=== PATIENT | female | born 1990 | race Caucasian/White ===

== ENCOUNTER 2023-01-20 11:02 | Day surgery (SDC) | payer OTHER ==
[~2023-01-20 11:02] MED LIST: Lactated Ringers 1,000 ML IV SCH
[2023-01-20] MEDS ORDERED: Naloxone 0.4 MG/ML SDV IVPUSH PRN (11:18)
[2023-01-20] MEDS ORDERED: Albuterol 0.083% 2.5 MG/3 ML Neb Soln NEB PRN (11:18)
[2023-01-20] MEDS ORDERED: Metoclopramide 10 MG/2 ML SDV IVPUSH PRN (11:18)
[2023-01-20] MEDS ORDERED: HYDROmorphone 1 MG/ML Syringe IVPUSH PRN (11:18)
[2023-01-20] MEDS ORDERED: droPERidol 5 MG/2 ML SDV IVPUSH PRN (11:18)
[2023-01-20] MEDS ORDERED: fentaNYL 50 MCG/ML SDV IVPUSH PRN (11:18)
[2023-01-20] MEDS ORDERED: Morphine 2 MG/ML SYRINGE IVPUSH PRN (11:18)
[2023-01-20] MEDS ORDERED: Ondansetron 4 MG/2 ML SDV IVPUSH PRN (11:18)
[2023-01-20] MEDS ORDERED: Propofol 200 MG/20 ML SDV ONE (13:28)
[2023-01-20] MEDS ORDERED: Dexmedetomidine 200 MCG/2 ML SDV ONE (13:28)
[2023-01-20] MEDS ORDERED: fentaNYL 100 MCG/2 ML SDV ONE (13:28)
[2023-01-20] MEDS ORDERED: Dexamethasone 4 MG/ML 5 ML MDV ONE (13:29)
[2023-01-20] MEDS ORDERED: Ondansetron 4 MG/2 ML SDV ONE (13:29)
[2023-01-20] MEDS ORDERED: Lidocaine 1% 5 ML VIAL ONE (13:29)
[2023-01-20] MEDS ORDERED: Ketorolac 30 MG/ML SDV ONE (13:29)
[2023-01-20] MEDS ORDERED: ePHEDrine 50 MG/ML SDV ONE (13:59)
== END 2023-01-20 15:25 | disposition home or self-care (01) ==
LOC: MW.SDS 11:02
PROVIDERS: ATTEND Obstetrics & Gynecology
DX: N84.0 Polyp of corpus uteri (principal); Z32.00 Encounter for pregnancy test, result unknown; Z79.899 Other long term (current) drug therapy; Z87.59 Personal history of other complications of pregnancy, childbirth and the puerperium
CPT/HCPCS: 36415; 58558; 85027; J1100; J1885; J2405; J2704; J3010; J7120; 00952; J3490

== ENCOUNTER 2023-04-25 10:22 | Day surgery (SDC) | payer OTHER ==
[~2023-04-25 10:22] MED LIST changes: +Sodium Chloride 0.9% 10 ML Syringe FLUSH PRN; +Sodium Chloride 0.9% 2.5 ML Syringe FLUSH PRN; +Sodium Chloride 0.9% 20 ML SDV IV PRN
[2023-04-25 10:54] LABS: HEMATOCRIT 38.7 % (36.0-46.0); HEMOGLOBIN 13.5 g/dL (12.0-16.0); MEAN CORPUSCULAR HEMOGLOBIN 30.6 pg (27.0-32.0); MEAN CORPUSCULAR HGB CONC 34.9 g/dL (31.0-37.0); MEAN CORPUSCULAR VOLUME 87.8 fL (80.0-98.0); MEAN PLATELET VOLUME 9.1 fL (7.40-12.00); RED BLOOD CELL COUNT 4.41 M/uL (4.30-5.90); WHITE BLOOD CELL COUNT,WBC 5.64 K/uL (4.0-11.0)
[2023-04-25 11:12] LABS: A/G RATIO 0.9 (0.9-1.6); ALBUMIN 3.6 g/dL (3.4-5.0); BILIRUBIN TOTAL 0.4 mg/dL (0.2-1.0); CALCIUM 8.7 mg/dL (8.5-10.1); CARBON DIOXIDE,CO2 26.9 mmol/L (21.0-32.0); CREATININE 0.8 mg/dL (0.6-1.0); EST CRCL DRUG DOSING (CG) 106.48 mL/min; POTASSIUM,K 3.9 mmol/L (3.5-5.1); PROTEIN TOTAL,TP 7.4 g/dL (6.4-8.2)
[2023-04-25] MEDS ORDERED: Doxycycline 200 MG in Dextrose 5% in Water 250 ML IV ONE ×2 (11:30)
[2023-04-25] MEDS ORDERED: Propofol 200 MG/20 ML SDV ONE (11:39)
[2023-04-25] MEDS ORDERED: fentaNYL 100 MCG/2 ML SDV ONE (11:39)
[2023-04-25] MEDS ORDERED: Lidocaine 2% 5 ML SDV ONE (11:39)
[2023-04-25] MEDS ORDERED: Ondansetron 4 MG/2 ML SDV ONE (11:39)
[2023-04-25] MEDS ORDERED: Dexamethasone 4 MG/ML 5 ML MDV ONE (11:39)
[2023-04-25] MEDS ORDERED: Ketorolac 30 MG/ML SDV ONE (11:49)
[2023-04-25] MEDS ORDERED: Methylergonovine 0.2 MG/1 ML Amp ONE (12:44)
[2023-04-25] MEDS ORDERED: Acetaminophen/oxyCODONE 325-5 MG Tab PO PRN (13:06)
== END 2023-04-25 13:55 | disposition home or self-care (01) ==
LOC: MW.SDS 10:22
PROVIDERS: ATTEND Obstetrics & Gynecology
DX: O02.1 Missed abortion (principal); Z79.899 Other long term (current) drug therapy; Z98.890 Other specified postprocedural states
CPT/HCPCS: 36415; 59820; 80053; 85027; 86850; 86900; 86901; J1100; J2210; J2405; J2704; J3010; J3490; J7060; J7120; 01965; J1885